=== PATIENT | male | born 1990 | race African-American/Black ===

== ENCOUNTER 2021-07-08 22:29 | Emergency (ER) | payer OTHER ==
[~2021-07-08] VITALS: Ht 182.9 cm; Wt 77.0 kg
[2021-07-08] MEDS ORDERED: MORPHINE SULFATE 4 MG/ML INJ. IV/SQ PRN (23:00)
[2021-07-08] MEDS ORDERED: ACETAMINOPHEN 500 MG TABLET PO ONE (23:00)
[2021-07-08 23:01] LABS: BASO # 0.1 x10^3/uL (0.0-0.2); BASO % 1 % (0-3); EOS # 0.5 x10^3/uL (0.0-0.7); EOS % 6 % (0-3); HEMATOCRIT 39.8 % (39.0-53.0); HEMOGLOBIN 13.4 g/dL (13.0-17.5); LYMPH # 1.2 x10^3/uL (1.0-4.8); LYMPH % 15 % (24-48); MEAN CORPUSCULAR HEMOGLOBIN 29 pg (25-35); MEAN CORPUSCULAR HGB CONC 34 g/dL (31-37); MEAN CORPUSCULAR VOLUME 87 fL (79-100); MONO # 0.6 x10^3/uL (0.0-1.1); MONO % 8 % (0-9); NEUT # 5.6 x10^3/uL (1.8-7.7); NEUT % 70 % (31-73); PLATELET COUNT 314 x10^3/uL (140-400); RED BLOOD COUNT 4.58 x10^6/uL (4.30-5.70); RED CELL DISTRIBUTION WIDTH 13.1 % (11.5-14.5); WHITE BLOOD COUNT 8.1 x10^3/uL (4.0-11.0)
[2021-07-08 23:13] LABS: CALCIUM 8.4 mg/dL (8.5-10.1); GFR 106.9; POTASSIUM 4.4 mmol/L (3.5-5.1)
[2021-07-08 23:19] LABS: ALBUMIN 3.3 g/dL (3.4-5.0); ALBUMIN/GLOBULIN RATIO 0.8 (1.0-1.7); TOTAL BILIRUBIN 0.4 mg/dL (0.2-1.0); TOTAL PROTEIN 7.4 g/dL (6.4-8.2)
--- NOTE | 2021-07-08 23:27 | RAD ---
XR CHEST 1V History: Reason: shortness of breath / Spl. Instructions: / History: Comparison: None. Findings: No consolidation or pleural effusion. Normal heart size. No pneumothorax. Impression: 1. No acute cardiopulmonary process. Electronically signed by: Stanley Trammell DO (07/08/2021 11:25 PM) [facility]
[2021-07-08 23:41] LABS: INFLUENZA A PATIENT NEGATIVE (NEGATIVE); INFLUENZA B PATIENT NEGATIVE (NEGATIVE)
[2021-07-09] MEDS ORDERED: predniSONE 10 MG TABLET PO ONE
[2021-07-09] MEDS ORDERED: IPRATRPIUM/ALBUTEROL 0.5/2.5MG 3 ML NEBU. NEB ONE
[2021-07-09] MEDS ORDERED: BENZ-8 PO (00:11)
[2021-07-09] MEDS ORDERED: PRED50TA PO (00:11)
[2021-07-09] MEDS ORDERED: ALBU2.5V8 IH (00:11)
--- NOTE | 2021-07-09 00:11 | PHYS DOC ---
Past Medical History Additional Past Medical Histor: DENIES ANY HX (KAEL SCOTT [employer] GENER[employer]SE WORK[employer]) Past Surgical History: Tonsillectomy (KAEL SCOTT [employer] WORK[employer]) Smoking Status: Current Every Day Smoker Alcohol Use: Occasionally (KAEL SCOTT [employer]SE WORKER) General Adult EDM: Chief Complaint: CHEST PAIN HPI: HPI: Patient is a 30 year old male who presents to the ED today complaining of cough, chest tightness and shortness of breath, symptoms began today around noon while at work. Patient denies actual chest pain. Patient denies anything specifically making his symptoms worse or better. He states he feels warm. (KAEL SCOTT GENER[employer] HOUSE WORKER) Review of Systems: Review of Systems: Constitutional: Denies fever or chills. [] Eyes: Denies change in visual acuity. [] HENT: Denies nasal congestion or sore throat. [] Respiratory: Reports cough and shortness of breath Cardiovascular: Denies chest pain GI: Denies abdominal pain, nausea, vomiting, bloody stools or diarrhea. [] : Denies dysuria. [] Musculoskeletal: Denies back pain or joint pain. [] Integument: Denies rash. [] Neurologic: Denies headache, focal weakness or sensory changes. [] Psychiatric: Denies depression or anxiety. [] (KAEL SCOTT [employer] WORKER) Heart Score: C/O Chest Pain: N/A Risk Factors: Risk Factors: DM, Current or recent (<one month) smoker, HTN, HLP, family history of CAD, obesity. Risk Scores: Score 0 - 3: 2.5% MACE over next 6 weeks - Discharge Home Score 4 - 6: 20.3% MACE over next 6 weeks - Admit for Clinical Observation Score 7 - 10: 72.7% MACE over next 6 weeks - Early Invasive Strategies (KAEL SCOTT [employer] WORK[employer]) Current Medications: Current Medications Medications (Trade) Dose Ordered Sig/Vinicius Start Time Stop Time Status Last Admin Dose Admin Acetaminophen (Tylenol) 1,000 mg 1X ONCE 07/08/21 23:00 07/08/21 23:01 DC 07/08/21 23:00 1,000 MG Albuterol/ Ipratropium (Duoneb) 3 ml 1X ONCE 07/09/21 00:00 07/09/21 00:01 DC Morphine Sulfate (Morphine Sulfate) 4 mg PRN Q15MIN PRN 07/08/21 23:00 07/09/21 22:59 Prednisone (Prednisone) 50 mg 1X ONCE 07/09/21 00:00 07/09/21 00:01 DC (KAEL SCOTT [employer] WORK[employer]) Allergies: Allergies: Allergies Coded Allergies Type Severity Reaction Last Updated Verified Penicillins Allergy Intermediate 07/08/21 Yes (KAEL SCOTT GENER[employer] HOUSE WORKER) Physical Exam: PE: Constitutional: Well developed, well nourished, no acute distress, non-toxic appearance. [] HENT: Normocephalic, atraumatic, bilateral external ears normal, oropharynx moist, no oral exudates, nose normal. [] Eyes: PERRLA, EOMI, conjunctiva normal, no discharge. [] Neck: Normal range of motion, no tenderness, supple, no stridor. [] Cardiovascular:Heart rate regular rhythm, no murmur [] Lungs & Thorax: Bilateral breath sounds clear to auscultation [] Abdomen: Bowel sounds normal, soft, no tenderness, no masses, no pulsatile masses. [] Skin: Warm, dry, no erythema, no rash. [] Back: No tenderness, no CVA tenderness. [] Extremities: No tenderness, no cyanosis, no clubbing, ROM intact, no edema. [] Neurologic: Alert and oriented X 3, normal motor function, normal sensory function, no focal deficits noted. [] Psychologic: Affect normal, judgement normal, mood normal. [] (KAEL SCOTT GENER[employer] HOUSE WORKER) Current Patient Data: Labs: Laboratory Tests Test 07/08/21 22:45 07/08/21 23:20 White Blood Count 8.1 x10^3/uL (4.0-11.0) Red Blood Count 4.58 x10^6/uL (4.30-5.70) Hemoglobin 13.4 g/dL (13.0-17.5) Hematocrit 39.8 % (39.0-53.0) Mean Corpuscular Volume 87 fL (79-100) Mean Corpuscular Hemoglobin 29 pg (25-35) Mean Corpuscular Hemoglobin Concent 34 g/dL (31-37) Red Cell Distribution Width 13.1 % (11.5-14.5) Platelet Count 314 x10^3/uL (140-400) Neutrophils (%) (Auto) 70 % (31-73) Lymphocytes (%) (Auto) 15 % (24-48) L Monocytes (%) (Auto) 8 % (0-9) Eosinophils (%) (Auto) 6 % (0-3) H Basophils (%) (Auto) 1 % (0-3) Neutrophils # (Auto) 5.6 x10^3/uL (1.8-7.7) Lymphocytes # (Auto) 1.2 x10^3/uL (1.0-4.8) Monocytes # (Auto) 0.6 x10^3/uL (0.0-1.1) Eosinophils # (Auto) 0.5 x10^3/uL (0.0-0.7) Basophils # (Auto) 0.1 x10^3/uL (0.0-0.2) Sodium Level 136 mmol/L (136-145) Potassium Level 4.4 mmol/L (3.5-5.1) Chloride Level 100 mmol/L (98-107) Carbon Dioxide Level 27 mmol/L (21-32) Anion Gap 9 (6-14) Blood Urea Nitrogen 9 mg/dL (8-26) Creatinine 1.0 mg/dL (0.7-1.3) Estimated GFR (Cockcroft-Gault) 106.9 BUN/Creatinine Ratio 9 (6-20) Glucose Level 116 mg/dL (70-99) H Lactic Acid Level 1.2 mmol/L (0.4-2.0) Calcium Level 8.4 mg/dL (8.5-10.1) L Total Bilirubin 0.4 mg/dL (0.2-1.0) Aspartate Amino Transferase (AST) 30 U/L (15-37) Alanine Aminotransferase (ALT) 49 U/L (16-63) Alkaline Phosphatase 73 U/L (46-116) Troponin I High Sensitivity 27 ng/L (4-75) Total Protein 7.4 g/dL (6.4-8.2) Albumin 3.3 g/dL (3.4-5.0) L Albumin/Globulin Ratio 0.8 (1.0-1.7) L Procalcitonin < 0.10 ng/mL (0.00-0.10) Influenza Type A Antigen Negative (NEGATIVE) Influenza Type B Antigen Negative (NEGATIVE) SARS-CoV-2 Antigen (Rapid) Negative (NEGATIVE) Laboratory Tests 07/08/21 22:45 Laboratory Tests 07/08/21 22:45 Vital Signs: Vital Signs Date Time Temp Pulse Resp B/P (MAP) Pulse Ox O2 Delivery O2 Flow Rate FiO2 07/08/21 22:30 101.4 106 20 158/94 (115) 97 Room Air 101.4 (KAEL SCOTT APRN) EKG: EKG: [] (KAEL SCOTT APRN) Radiology/Procedures: Radiology/Procedures: []PROCEDURE: CHEST AP ONLY XR CHEST 1V History: Reason: shortness of breath / Spl. Instructions: / History: Comparison: None. Findings: No consolidation or pleural effusion. Normal heart size. No pneumothorax. Impression: 1. No acute cardiopulmonary process. Electronically signed by: Stanley Trammell DO (07/08/2021 11:25 PM) [facility] DICTATED and SIGNED BY: STANLEY TRAMMELL DO DATE: 07/08/21 [id number] (KAEL SCOTT APRN) Course & Med Decision Making: Course & Med Decision Making Pertinent Labs and Imaging studies reviewed. (See chart for details) This a 30-year-old male patient presented to the ED today complaining of cough, chest tightness, shortness of breath, symptoms began today. Vitals on arrival to the ED temperature one 1.4, heart rate 106, respiration 20 on room air, blood pressure 158/94, O2 sats 97%. Chest x-ray interpreted by radiologist is negative for any acute findings. Negative influenza A&B negative rapid Covid test. CBC with no acute findings, CMP with no acute findings, high-sensitivity troponin is normal, EKG is negative Given Tylenol, breathing treatment, prednisone in the ED. Feeling better. Discharged with the same medicines. Provided return precautions. Follow-up with PCP in the next 7 days (KAEL SCOTT APRN) Course & Med Decision Making Patients Care and treatment plan provided by ER Nurse Practitioner. I was available for consult. Patient's chart reviewed. (ZAIN LR DO) [place] Disclaimer: Dragida Disclaimer: This electronic medical record was generated, in whole or in part, using a voice recognition dictation system. (KAEL SCOTT APRN) Departure Departure Impression: Primary Impression: Acute bronchitis Qualified Codes: J20.9 - Acute bronchitis, unspecified Additional Impression: Fever Qualified Codes: R50.9 - Fever, unspecified Disposition: 01 HOME / SELF CARE / HOMELESS Condition: STABLE Referrals: NO PCP (PCP) follow up with your docto in one week Patient Instructions: Acute Bronchitis, [id number], Fever, Adult Additional Instructions: You were evaluated in the emergency room, your chest x-ray is negative for pneumonia, your rapid Covid test and rapid influenza a and B test are negative. You have a pending PCR COVID test. We will call you with the results. Consider smoking cessation, take Tylenol or Motrin for pain or fever. Use the rest of the prescribed medications as ordered. Scripts Albuterol Sulfate (Proair Hfa) 8.5 Gm Hfa.aer.ad 2 PUFF IH PRN Q4-6HRS PRN for wheezing for 21 Days, #1 INHALER 0 Refills Prov: KAEL SCOTT APRN 07/09/21 Benzonatate (BENZONATATE) 100 Mg Capsule 1 CAP PO TID, #30 CAP Prov: KAEL SCOTT APRN 07/09/21 Prednisone (PREDNISONE) 50 Mg Tablet 1 TAB PO DAILY, #5 TAB Prov: KAEL SCOTT APRN 07/09/21 KEAL SCOTT APRN Jul 09, 2021 00:11 ZAIN LR DO Jul 09, 2021 03:45
[2021-07-09 00:30] VITALS: BP 182/98
--- NOTE | 2021-07-09 05:21 | EKG ---
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
== END 2021-07-09 00:45 | disposition home or self-care (01) ==
LOC: ER 22:29
DX: J20.9 Acute bronchitis, unspecified (principal); R50.9 Fever, unspecified; Z20.822 Contact with and (suspected) exposure to COVID-19; R06.02 Shortness of breath; R07.89 Other chest pain; F17.200 Nicotine dependence, unspecified, uncomplicated; Z88.0 Allergy status to penicillin
CPT/HCPCS: 36415; 71045; 80053; 83605; 84145; 84484; 85025; 87040; 87428; 93005; 94640; 99285; C9803; U0003

== ENCOUNTER 2021-07-15 19:09 | Inpatient (IN) | payer OTHER ==
[~2021-07-15] VITALS: Ht 182.9 cm; Wt 165.6 kg
[~2021-07-15 19:09] MED LIST: ALBU2.5V8 IH; BENZ-8 PO; PRED50TA PO
--- NOTE | 2021-07-15 19:29 | PHYS DOC ---
Past Medical History Past Medical History: No Pertinent History Additional Past Medical Histor: DENIES ANY HX Past Surgical History: Tonsillectomy Smoking Status: Current Every Day Smoker Alcohol Use: Occasionally Drug Use: None General Adult HPI: HPI: Patient is a 30-year-old male that presents today with substernal chest pressure. Patient states the pain started around 530 yesterday evening when he was sitting watching TV, said the pain is located in the center of his chest and it feels like a knife stabbing him. Patient denies nausea or vomiting, shortness of breath, or diaphoresis with this pain. Patient states the pain worsens with deep breaths, and is reproducible with chest wall palpation. Patient was here earlier in the month with chest pain and was diagnosed with acute bronchitis, patient states he has not followed up with a primary care physician for that visit because he does not have one. Review of Systems: Review of Systems: Constitutional: Denies fever or chills. [] Eyes: Denies change in visual acuity. [] HENT: Denies nasal congestion or sore throat. [] Respiratory: Denies cough or shortness of breath. [] Cardiovascular: Chest pressure GI: Denies abdominal pain, nausea, vomiting, bloody stools or diarrhea. [] : Denies dysuria. [] Musculoskeletal: Denies back pain or joint pain. [] Integument: Denies rash. [] Neurologic: Denies headache, focal weakness or sensory changes. [] Endocrine: Denies polyuria or polydipsia. [] Lymphatic: Denies swollen glands. [] Psychiatric: Denies depression or anxiety. [] Heart Score: C/O Chest Pain: Yes HEART Score for Chest Pain: HEART Score for Chest Pain Response (Comments) Value History Slighlty/Non-Suspicious 0 ECG Normal 0 Age < 45 0 Risk Factors 1 or 2 Risk Factors 1 Troponin >3 x Normal Limit 2 Total 3 Risk Factors: Risk Factors: DM, Current or recent (<one month) smoker, HTN, HLP, family history of CAD, obesity. Risk Scores: Score 0 - 3: 2.5% MACE over next 6 weeks - Discharge Home Score 4 - 6: 20.3% MACE over next 6 weeks - Admit for Clinical Observation Score 7 - 10: 72.7% MACE over next 6 weeks - Early Invasive Strategies Allergies: Allergies: Allergies Coded Allergies Type Severity Reaction Last Updated Verified Penicillins Allergy Intermediate 07/08/21 Yes Physical Exam: PE: Constitutional: Well developed, well nourished, no acute distress, non-toxic appearance. [] HENT: Normocephalic, atraumatic, bilateral external ears normal, oropharynx moist, no oral exudates, nose normal. [] Eyes: PERRLA, EOMI, conjunctiva normal, no discharge. [] Neck: Normal range of motion, no tenderness, supple, no stridor, no JVD Cardiovascular:Heart rate regular rhythm, no murmur [] Lungs & Thorax: Bilateral breath sounds clear to auscultation, with upper airway wheezes. Abdomen: Bowel sounds normal, soft, no tenderness, no masses, no pulsatile masses. [] Skin: Warm, dry, no erythema, no rash. [] Back: No tenderness, no CVA tenderness. [] Extremities: No tenderness, no cyanosis, no clubbing, ROM intact, no edema, peripheral pulses are 2+ Neurologic: Alert and oriented X 3, normal motor function, normal sensory function, no focal deficits noted. [] Psychologic: Affect normal, judgement normal, mood normal. [] Current Patient Data: Labs: Laboratory Tests Test 07/15/21 19:30 White Blood Count 7.8 x10^3/uL Red Blood Count 4.76 x10^6/uL Hemoglobin 14.1 g/dL Hematocrit 41.9 % Mean Corpuscular Volume 88 fL Mean Corpuscular Hemoglobin 30 pg Mean Corpuscular Hemoglobin Concent 34 g/dL Red Cell Distribution Width 13.3 % Platelet Count 311 x10^3/uL Neutrophils (%) (Auto) 47 % Lymphocytes (%) (Auto) 41 % Monocytes (%) (Auto) 9 % Eosinophils (%) (Auto) 2 % Basophils (%) (Auto) 1 % Neutrophils # (Auto) 3.7 x10^3/uL Lymphocytes # (Auto) 3.2 x10^3/uL Monocytes # (Auto) 0.7 x10^3/uL Eosinophils # (Auto) 0.1 x10^3/uL Basophils # (Auto) 0.1 x10^3/uL Prothrombin Time 11.6 SEC Prothromb Time International Ratio 0.8 Activated Partial Thromboplast Time 22 SEC D-Dimer (Trista) 0.42 ug/mlFEU Sodium Level 135 mmol/L Potassium Level 3.8 mmol/L Chloride Level 101 mmol/L Carbon Dioxide Level 26 mmol/L Anion Gap 8 Blood Urea Nitrogen 9 mg/dL Creatinine 1.1 mg/dL Estimated GFR (Cockcroft-Gault) 95.8 BUN/Creatinine Ratio 8 Glucose Level 108 mg/dL Calcium Level 8.1 mg/dL Total Bilirubin 0.3 mg/dL Aspartate Amino Transf (AST/SGOT) 59 U/L Alanine Aminotransferase (ALT/SGPT) 104 U/L Alkaline Phosphatase 70 U/L Troponin I High Sensitivity 3060 ng/L NY-Uje-U-Type Natriuretic Peptide 203 pg/mL Total Protein 7.8 g/dL Albumin 3.4 g/dL Albumin/Globulin Ratio 0.8 Current Medications Medications (Trade) Dose Ordered Sig/Vinicisu Route PRN Reason Start Time Stop Time Status Last Admin Dose Admin Ketorolac Tromethamine (Toradol 30mg Vial) 30 mg 1X ONCE IVP 07/15/21 19:30 07/15/21 19:31 DC 07/15/21 19:58 Nitroglycerin (Nitrostat) 0.4 mg PRN Q5MIN PRN SL CHEST PAIN 07/15/21 20:15 07/15/21 20:19 Morphine Sulfate (Morphine Sulfate) 2 mg 1X ONCE IVP 07/15/21 20:15 07/15/21 20:16 DC 07/15/21 20:20 Aspirin (Aspirin Chewable) 324 mg 1X ONCE PO 07/15/21 20:15 07/15/21 20:16 DC 07/15/21 20:18 Iohexol (Omnipaque 350 Mg/ml) 100 ml 1X ONCE IV 07/15/21 20:30 07/15/21 20:32 DC 07/15/21 20:30 Info (CONTRAST GIVEN -- Rx MONITORING) 1 each PRN DAILY PRN MC SEE COMMENTS 07/15/21 20:45 07/17/21 20:44 Vital Signs: Vital Signs Date Time Temp Pulse Resp B/P (MAP) Pulse Ox O2 Delivery O2 Flow Rate FiO2 07/15/21 20:20 29 Room Air 07/15/21 20:19 92 171/102 07/15/21 19:34 98.8 86 16 167/80 (109) 99 Room Air 98.8 EKG: EKG: EKG done at [address] Fernandez at 1925 no STEMI sinus rhythm with ST segment depression in lead III, heart rate is 87 with a VA interval of 152 ms with a QTC of 400 ms. [] Radiology/Procedures: Radiology/Procedures: [REASON: chest pain, DISSECTION PROTOCOL PROCEDURE: CT ANGIOGRAPHY CHEST EXAMINATION: CTA CHEST CLINICAL HISTORY: Chest pain concerning for aortic dissection. Technique: Spiral CT acquisition of the chest from the thoracic inlet to the upper abdomen following IV contrast with coronal and sagittal reformatted images also provided for review. 3D maximum intensity projection images also performed. CT Dose Reduction Employed: One or more of the following individualized dose re duction techniques were utilized for this examination: 1. Automated exposure control 2. Adjustment of the mA and/or kV according to patient size 3. Use of iterative reconstruction technique. COMPARISON: None FINDINGS: Lung Parenchyma, Pleura, and Airways: No focal consolidation. No pleural effusion. Central airways patent. Lower Neck, Lymph Nodes, and Mediastinum: Visualized thyroid gland within normal limits. No mediastinal, hilar, or axillary lymphadenopathy. Heart, Pericardium, and Thoracic Vessels: Cardiac chambers normal in size. No pericardial effusion. No thoracic aortic aneurysm or dissection. No coronary artery atherosclerotic calcifications are noted, although the study is not optimized for coronary assessment. Bones and Soft Tissues: No evidence of acute osseous abnormality. Upper Abdomen: Partially visualized upper abdomen unremarkable. IMPRESSION: No evidence of acute cardiopulmonary abnormality. Electronically signed by: Enrique Flores DO (07/15/2021 9:53 PM) [facility] REASON: chest pain PROCEDURE: PORTABLE CHEST 1V EXAMINATION: XR CHEST 1V CLINICAL HISTORY: Chest pain. EXAM DATE/TIME: 07/15/2021 7:40 PM COMPARISON: 07/08/2021 FINDINGS: Lines, Tubes, and Devices: None. Cardiomediastinal Silhouette: Prominent cardiac silhouette, likely accentuated by AP portable technique. Lungs and Pleura: Question minimal bibasilar subsegmental atelectasis. No evidence of focal airspace consolidation or pleural effusion. Pulmonary vasculature unremarkable. Bones and Soft Tissues: No acute osseous abnormality. IMPRESSION: Question minimal bibasilar subsegmental atelectasis, otherwise no evidence of acute cardiopulmonary abnormality or significant interval change. Electronically signed by: Enrique Flores DO (07/15/2021 8:57 PM) [facility] Course & Med Decision Making: Course & Med Decision Making Pertinent Labs and Imaging studies reviewed. (See chart for details) [address] Tracey with cardiology service informed him of the elevated troponin and the patient's status, he recommended a CT scan of his chest, and starting the patient on a heparin and nitro drip. [address] Wilder he is agreeable to admitting this patient and with the recommendations made by Dr. Ferrara for nitro and heparin drip to admit the patient to the intensive care unit for further management. 2199 CT scan of the chest has been read asno acute findings at this time, we will start a heparin and nitro drip to control blood pressure and chest pain and cardiology will see the patient in the a.m. Dragida Disclaimer: Blake Disclaimer: This electronic medical record was generated, in whole or in part, using a voice recognition dictation system. Departure Departure Impression: Primary Impression: Chest pain Qualified Codes: R07.9 - Chest pain, unspecified Additional Impression: Elevated troponin Disposition: ADMITTED INPATIENT Admitting Physician: KEI Condition: GUARDED Referrals: NO PCP (PCP) VICENTE FRENCH APRN Jul 15, 2021 19:29
[2021-07-15] MEDS ORDERED: KETOROLAC 30 MG/ML VIAL. IVP ONE (19:30)
[2021-07-15 19:40] LABS: BASO # 0.1 x10^3/uL (0.0-0.2); BASO % 1 % (0-3); EOS # 0.1 x10^3/uL (0.0-0.7); EOS % 2 % (0-3); HEMATOCRIT 41.9 % (39.0-53.0); HEMOGLOBIN 14.1 g/dL (13.0-17.5); LYMPH # 3.2 x10^3/uL (1.0-4.8); LYMPH % 41 % (24-48); MEAN CORPUSCULAR HEMOGLOBIN 30 pg (25-35); MEAN CORPUSCULAR HGB CONC 34 g/dL (31-37); MEAN CORPUSCULAR VOLUME 88 fL (79-100); MONO # 0.7 x10^3/uL (0.0-1.1); MONO % 9 % (0-9); NEUT # 3.7 x10^3/uL (1.8-7.7); NEUT % 47 % (31-73); PLATELET COUNT 311 x10^3/uL (140-400); RED BLOOD COUNT 4.76 x10^6/uL (4.30-5.70); RED CELL DISTRIBUTION WIDTH 13.3 % (11.5-14.5); WHITE BLOOD COUNT 7.8 x10^3/uL (4.0-11.0)
[2021-07-15 19:49] LABS: CALCIUM 8.1 mg/dL (8.5-10.1); CREATININE 1.1 mg/dL (0.7-1.3); GFR 95.8; POTASSIUM 3.8 mmol/L (3.5-5.1)
[2021-07-15 19:54] LABS: PROTHROMBIN TIME PATIENT 11.6 SEC (11.7-14.0)
[2021-07-15 19:55] LABS: ALBUMIN 3.4 g/dL (3.4-5.0); ALBUMIN/GLOBULIN RATIO 0.8 (1.0-1.7); TOTAL BILIRUBIN 0.3 mg/dL (0.2-1.0); TOTAL PROTEIN 7.8 g/dL (6.4-8.2)
[2021-07-15 20:10] LABS: D-DIMER 0.42 ug/mlFEU (0.00-0.50)
[2021-07-15] MEDS ORDERED: MORPHINE SULFATE 2 MG/ML INJ. IVP ONE (20:15)
[2021-07-15] MEDS ORDERED: ASPIRIN CHEWABLE 81 MG TABLET. PO ONE (20:15)
[2021-07-15] MEDS ORDERED: NITROGLYCERIN SUBLINGUAL 0.4 MG BOTTLE OF 25. SL PRN (20:15)
[2021-07-15] MEDS ORDERED: IOHEXOL 350 MG/ML 100 ML VIAL. IV ONE (20:30)
[2021-07-15] MEDS ORDERED: CONTRAST GIVEN. MC PRN (20:45)
--- NOTE | 2021-07-15 20:59 | RAD ---
EXAMINATION: XR CHEST 1V CLINICAL HISTORY: Chest pain. EXAM DATE/TIME: 07/15/2021 7:40 PM COMPARISON: 07/08/2021 FINDINGS: Lines, Tubes, and Devices: None. Cardiomediastinal Silhouette: Prominent cardiac silhouette, likely accentuated by AP portable techniq ue. Lungs and Pleura: Question minimal bibasilar subsegmental atelectasis. No evidence of focal airspace consolidation or pleural effusion. Pulmonary vasculature unremarkable. Bones and Soft Tissues: No acute osseous abnormality. IMPRESSION: Question minimal bibasilar subsegmental atelectasis, otherwise no evidence of acute cardiopulmonary a bnormality or significant interval change. Electronically signed by: Enrique Merchant DO (07/15/2021 8:57 PM) [facility]
--- NOTE | 2021-07-15 21:55 | RAD ---
EXAMINATION: CTA CHEST CLINICAL HISTORY: Chest pain concerning for aortic dissection. Technique: Spiral CT acquisition of the chest from the thoracic inlet to the upper abdomen following IV contrast with coronal and sagittal reformatted images also provided for review. 3D maximum intensi ty projection images also performed. CT Dose Reduction Employed: One or more of the following individualized dose reduction techniques wer e utilized for this examination: 1. Automated exposure control 2. Adjustment of the mA and/or kV ac cording to patient size 3. Use of iterative reconstruction technique. COMPARISON: None FINDINGS: Lung Parenchyma, Pleura, and Airways: No focal consolidation. No pleural effusion. Central airways pa tent. Lower Neck, Lymph Nodes, and Mediastinum: Visualized thyroid gland within normal limits. No mediastin al, hilar, or axillary lymphadenopathy. Heart, Pericardium, and Thoracic Vessels: Cardiac chambers normal in size. No pericardial effusion. N o thoracic aortic aneurysm or dissection. No coronary artery atherosclerotic calcifications are noted , although the study is not optimized for coronary assessment. Bones and Soft Tissues: No evidence of acute osseous abnormality. Upper Abdomen: Partially visualized upper abdomen unremarkable. IMPRESSION: No evidence of acute cardiopulmonary abnormality. Electronically signed by: Enrique Merchant DO (07/15/2021 9:53 PM) [facility]
[2021-07-15] MEDS ORDERED: HEPARIN for IV BOLUS 10,000 UNIT/10 ML VIAL. IV PRN (22:15)
[2021-07-15] MEDS ORDERED: MORPHINE SULFATE 2 MG/ML INJ. IVP PRN (22:15)
[2021-07-15] MEDS ORDERED: ONDANSETRON PF 4 MG/2 ML VIAL. IVP PRN (22:15)
[2021-07-15] MEDS ORDERED: ANTI-COAG MONITOR BY PHARMACY. MC PRN (22:30)
[2021-07-15] MEDS ORDERED: HEPARIN for IV BOLUS 10,000 UNIT/10 ML VIAL. IV ONE (22:30)
[2021-07-15] MEDS ORDERED: NITROGLYCERIN PREMIX 250 ML IV ONE (23:00)
[2021-07-15] MEDS: HEPARIN 25,000UTS/250ML PREMIX 250 ML IV PRN (23:12)
[2021-07-16] VITALS (17 sets, daily range): BP systolic 144–196; BP diastolic 83–111
--- NOTE | 2021-07-16 00:30 | EKG ---
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
--- NOTE | 2021-07-16 00:32 | EKG ---
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
[2021-07-16] MEDS ORDERED: CALCIUM CARBONATE 500 MG TAB.CHEW PO PRN (09:30)
[2021-07-16] MEDS ORDERED: MORPHINE SULFATE 2 MG/ML INJ. IV PRN ×2 (09:30)
[2021-07-16] MEDS ORDERED: ELECTROLYTE (NON-ICU) PROTOCOL. MC PRN (09:30)
[2021-07-16] MEDS ORDERED: ONDANSETRON PF 4 MG/2 ML VIAL. IVP PRN (09:30)
[2021-07-16] MEDS ORDERED: ACETAMINOPHEN 325 MG TABLET. PO PRN (09:30)
[2021-07-16] MEDS ORDERED: ZOLPIDEM 5 MG TABLET. PO PRN (09:30)
[2021-07-16] MEDS ORDERED: hydrALAZINE 20 MG/ML VIAL. IVP PRN (09:45)
--- NOTE | 2021-07-16 09:48 | EKG ---
[facility] [address] [place] [address] Test Date: 2021-07-16 Test Time: 09:42:18 Pat Name: JESSICA LAZO Department: Room: 104 1 Gender: M Director Medicare Sales: YEIMI : 1990 Requested By: ADITYA DELGADO Order Number: [id number] Reading MD: Measurements Intervals [place] Rate: 89 P: 32 MI: 150 QRS: 58 QRSD: 80 T: 19 QT: 330 QTc: 407 Interpretive Statements SINUS RHYTHM OTHERWISE NORMAL ECG RI6.02 Compared to ECG 07/15/2021 20:15:37 Left-axis deviation no longer present T-wave abnormality no longer present
[2021-07-16 09:59] LABS: CHOLESTEROL/HDL RATIO 5.1
--- NOTE | 2021-07-16 10:17 | PDOC2 ---
ADITYA DELGADO BEHAVIORAL HEALTH DIRECTOR 07/16/21 1017: CARDIAC CONSULT DATE OF CONSULT Date of Consult DATE: 07/16/21 TIME: 09:57 REASON FOR CONSULT Reason for Consult: Chest pain, elevated troponin REFERRING PHYSICIAN Referring Physician: Too rodriguez SOURCE Source: Chart review, Patient HISTORY OF PRESENT ILLNESS HISTORY OF PRESENT ILLNESS This is a pleasant 30 yo male admitted for complains of chest pain. Reports that yesterday while at rest started having mid chest tightness. He got nauseated and blaming it on gasx. Also with some SOA and left arm heaviness. Denies any palpitations. His chest pain got better after NTG x1 and morphine and presently on NTG drip. Denies any past hx of VTE, CAD, or arrhythmias. NO recent injury or falls. Denies any routine meds. He was treated less than 2 weeks ago for bronchitis. No hx of HTN, HLP and has not been tested for LATONIA. He is unvaccinated for covid-19 and denies any fever or chills or any viral symptoms. PAST MEDICAL HISTORY Past Medical History No pertinent history PAST SURGICAL HISTORY Past Surgical History: Tonsillectomy FAMILY HISTORY Family History noncontributory to CV SOCIAL HISTORY Smoke: <1 pack per day ALCOHOL: none Drugs: None Lives: with Family CURRENT MEDICATIONS CURRENT MEDICATIONS Current Medications Medications (Trade) Dose Ordered Sig/Vinicius Route PRN Reason Start Time Stop Time Status Last Admin Dose Admin Ketorolac Tromethamine (Toradol 30mg Vial) 30 mg 1X ONCE IVP 07/15/21 19:30 07/15/21 19:31 DC 07/15/21 19:58 Nitroglycerin (Nitrostat) 0.4 mg PRN Q5MIN PRN SL CHEST PAIN 07/15/21 20:15 07/15/21 20:19 Morphine Sulfate (Morphine Sulfate) 2 mg 1X ONCE IVP 07/15/21 20:15 07/15/21 20:16 DC 07/15/21 20:20 Aspirin (Aspirin Chewable) 324 mg 1X ONCE PO 07/15/21 20:15 07/15/21 20:16 DC 07/15/21 20:18 Iohexol (Omnipaque 350 Mg/ml) 100 ml 1X ONCE IV 07/15/21 20:30 07/15/21 20:32 DC 07/15/21 20:30 Heparin Sodium (Porcine) (Heparin Sodium) 4,000 unit 1X ONCE IV 07/15/21 22:30 07/15/21 22:31 DC 07/15/21 23:08 Heparin Sodium/ Dextrose 250 ml @ 10 mls/hr CONT PRN IV PER PROTOCOL 07/15/21 22:15 07/15/21 23:12 Nitroglycerin/ Dextrose 250 ml @ 1.5 mls/hr 1X ONCE IV 07/15/21 23:00 07/22/21 21:39 07/15/21 23:14 Info (Anti-Coagulation Monitoring By Pharmacy) 1 each PRN DAILY PRN MC PER PROTOCOL 07/15/21 22:30 07/16/21 00:43 ALLERGIES ALLERGIES: Coded Allergies: Penicillins (Verified Allergy, Intermediate, 07/15/21) ROS Review of System 14 point ROS evaluated with pertinent positives noted per HPI PHYSICAL EXAM General: Alert, Oriented X3, Cooperative, No acute distress HEENT: Atraumatic, Mucous membr. moist/pink Lungs: Clear to auscultation, Normal air movement Heart: Regular rate, Normal S1, Normal S2, No murmurs Abdomen: Soft, No tenderness, Other (obese) Extremities: No cyanosis, No edema Skin: No breakdown, No significant lesion Neuro: Normal speech, Sensation intact Psych/Mental Status: Mental status NL, Mood NL MUSCULOSKELETAL: Full range of motion without pain VITALS/I&O VITALS/I&O: Vital Signs Date Time Temp Pulse Resp B/P (MAP) Pulse Ox O2 Delivery O2 Flow Rate FiO2 07/16/21 06:00 74 20 196/111 (139) 84 07/16/21 04:00 Nasal Cannula 2.0 07/16/21 04:00 99.1 99.1 I & O 07/15/21 07/15/21 07/16/21 15:00 23:00 07:00 Intake Total 489 ml Output Total 0 ml Balance 489 ml LABS Lab: Laboratory Tests Test 07/15/21 19:30 07/15/21 22:01 07/16/21 01:10 07/16/21 04:45 White Blood Count 7.8 x10^3/uL (4.0-11.0) Red Blood Count 4.76 x10^6/uL (4.30-5.70) Hemoglobin 14.1 g/dL (13.0-17.5) Hematocrit 41.9 % (39.0-53.0) Mean Corpuscular Volume 88 fL (79-100) Mean Corpuscular Hemoglobin 30 pg (25-35) Mean Corpuscular Hemoglobin Concent 34 g/dL (31-37) Red Cell Distribution Width 13.3 % (11.5-14.5) Platelet Count 311 x10^3/uL (140-400) Neutrophils (%) (Auto) 47 % (31-73) Lymphocytes (%) (Auto) 41 % (24-48) Monocytes (%) (Auto) 9 % (0-9) Eosinophils (%) (Auto) 2 % (0-3) Basophils (%) (Auto) 1 % (0-3) Neutrophils # (Auto) 3.7 x10^3/uL (1.8-7.7) Lymphocytes # (Auto) 3.2 x10^3/uL (1.0-4.8) Monocytes # (Auto) 0.7 x10^3/uL (0.0-1.1) Eosinophils # (Auto) 0.1 x10^3/uL (0.0-0.7) Basophils # (Auto) 0.1 x10^3/uL (0.0-0.2) Prothrombin Time 11.6 SEC (11.7-14.0) L Prothrombin Time INR 0.8 (0.8-1.1) Activated Partial Thromboplast Time 22 SEC (24-38) L D-Dimer (Trista) 0.42 ug/mlFEU (0.00-0.50) Sodium Level 135 mmol/L (136-145) L Potassium Level 3.8 mmol/L (3.5-5.1) Chloride Level 101 mmol/L (98-107) Carbon Dioxide Level 26 mmol/L (21-32) Anion Gap 8 (6-14) Blood Urea Nitrogen 9 mg/dL (8-26) Creatinine 1.1 mg/dL (0.7-1.3) Estimated GFR (Cockcroft-Gault) 95.8 BUN/Creatinine Ratio 8 (6-20) Glucose Level 108 mg/dL (70-99) H Calcium Level 8.1 mg/dL (8.5-10.1) L Total Bilirubin 0.3 mg/dL (0.2-1.0) Aspartate Amino Transferase (AST) 59 U/L (15-37) H Alanine Aminotransferase (ALT) 104 U/L (16-63) H Alkaline Phosphatase 70 U/L (46-116) Troponin I High Sensitivity 3060 ng/L (4-75) H 3131 ng/L (4-75) H 4980 ng/L (4-75) H PG-Gbl-E-Type Natriuretic Peptide 203 pg/mL (0-124) H Total Protein 7.8 g/dL (6.4-8.2) Albumin 3.4 g/dL (3.4-5.0) Albumin/Globulin Ratio 0.8 (1.0-1.7) L Heparin Anti-Xa Act, Unfractionated 0.21 IU/mL (0.30-0.70) L Laboratory Tests 07/15/21 19:30 Laboratory Tests 07/15/21 19:30 ASSESSMENT/PLAN ASSESSMENT/PLAN 1. NSTEMI: possibly demand mediated with uncontrolled HTN. EKG with no acute changes SR. 2. Chest pain: potentially from high BP 3. HTN urgency 4. Morbid obesity 5. Tobaccoism 6. Mild transaminitis: possible hepatosteatosis Recommendations 1. DC NTG. Start on amlodipine and lisinopril. Hold any BB for now with episodes of bradycardia. Hydralazine IV PRN. 2. ASA 3. x1 trop, FLP, TSH and TTE 4. Will need outpt LATONIA workup 5. Wt loss and smoking cessation 6. Will need ischemic workup pending tests HERI RICHMOND MD 07/16/21 1620: CARDIAC CONSULT ASSESSMENT/PLAN ASSESSMENT/PLAN Patient seen and examined The patient is more comfortable. I agree with our nurse practitioners assessment and plan. NSTEMI: possibly demand mediated with uncontrolled HTN. EKG with no acute changes SR. Echo pending. Chest pain: potentially from high BP. Continuing medications for improved blood pressure control. HTN urgency. Medications as above. Morbid obesity Tobaccoism. Discussed with the patient. Mild transaminitis: possible hepatosteatosis Probable obstructive sleep apnea. Outpatient work-up. ADITYA DELGADO APRN Jul 16, 2021 10:17 HERI RICHMOND MD Jul 16, 2021 16:20
--- NOTE | 2021-07-16 10:23 | PDOC1 ---
History and Physical Date of Service: DOS: DATE: 07/16/21 TIME: 10:23 Chief Complaint: Chief Complain: chest pain History of Present Illness: HPI: Patient is a 30-year-old male that presents today with substernal chest pressure. Patient states the pain started around 530 yesterday evening when he was sitting watching TV, said the pain is located in the center of his chest and it feels like a knife stabbing him. Patient denies nausea or vomiting, shortness of breath, or diaphoresis with this pain. Patient states the pain worsens with deep breaths, and is reproducible with chest wall palpation. Patient was here earlier in the month with chest pain and was diagnosed with acute bronchitis, patient states he has not followed up with a primary care physician for that visit because he does not have one. Past Medical/Surgical History: PMH/PSH: Past Medical History: No Pertinent History X Past Surgical History: Tonsillectomy Smoking Status: Current Every Day Smoker Alcohol Use: Occasionally Drug Use: None Allergies: Allergies: Coded Allergies: Penicillins (Verified Allergy, Intermediate, 07/15/21) Family History: Family History: CAD, [place] Current Medications: Current Medications Current Medications Ketorolac Tromethamine (Toradol 30mg Vial) 30 mg 1X ONCE IVP Last administered on 07/15/21at 19:58; Start 07/15/21 at 19:30; Stop 07/15/21 at 19:31; Status DC Nitroglycerin (Nitrostat) 0.4 mg PRN Q5MIN PRN SL CHEST PAIN Last administered on 07/15/21at 20:19; Start 07/15/21 at 20:15 Morphine Sulfate (Morphine Sulfate) 2 mg 1X ONCE IVP Last administered on 07/15/21at 20:20; Start 07/15/21 at 20:15; Stop 07/15/21 at 20:16; Status DC Aspirin (Aspirin Chewable) 324 mg 1X ONCE PO Last administered on 07/15/21at 20:18; Start 07/15/21 at 20:15; Stop 07/15/21 at 20:16; Status DC Iohexol (Omnipaque 350 Mg/ml) 100 ml 1X ONCE IV Last administered on 07/15/21at 20:30; Start 07/15/21 at 20:30; Stop 07/15/21 at 20:32; Status DC Info (CONTRAST GIVEN -- Rx MONITORING) 1 each PRN DAILY PRN MC SEE COMMENTS; Start 07/15/21 at 20:45; Stop 07/17/21 at 20:44 Ondansetron HCl (Zofran) 4 mg PRN Q8HRS PRN IVP NAUSEA/VOMITING 1ST CHOICE; Start 07/15/21 at 22:15; Stop 07/16/21 at 09:32; Status DC Morphine Sulfate (Morphine Sulfate) 2 mg PRN Q2HR PRN IVP SEVERE PAIN 7-10; Start 07/15/21 at 22:15; Stop 07/16/21 at 09:32; Status DC Heparin Sodium (Porcine) (Heparin Sodium) 4,000 unit 1X ONCE IV Last administered on 07/15/21at 23:08; Start 07/15/21 at 22:30; Stop 07/15/21 at 22:31; Status DC Heparin Sodium/ Dextrose 250 ml @ 10 mls/hr CONT PRN IV PER PROTOCOL Last administered on 07/15/21at 23:12; Start 07/15/21 at 22:15 Heparin Sodium (Porcine) (Heparin Sodium) 4,300 unit PRN Q6HRS PRN IV FOR UFH LEVEL LESS THAN 0.2; Start 07/15/21 at 22:15 Nitroglycerin/ Dextrose 250 ml @ 1.5 mls/hr 1X ONCE IV Last administered on 07/15/21at 23:14; Start 07/15/21 at 23:00; Stop 07/22/21 at 21:39 Info (Anti-Coagulation Monitoring By Pharmacy) 1 each PRN DAILY PRN MC PER PROTOCOL Last administered on 07/16/21at 00:43; Start 07/15/21 at 22:30 Ondansetron HCl (Zofran) 4 mg PRN Q6HRS PRN IVP NAUSEA/VOMITING; Start 07/16/21 at 09:30 Calcium Carbonate/ Glycine (Tums) 500 mg PRN Q3HRS PRN PO UPSET STOMACH; Start 07/16/21 at 09:30 Zolpidem Tartrate (Ambien) 5 mg PRN QHS PRN PO INSOMNIA, MAY REPEAT IN 1HR; Start 07/16/21 at 09:30 Info (Non-Icu Electrolyte Protocol) 1 ea PRN DAILY PRN MC SEE COMMENTS; Start 07/16/21 at 09:30 Morphine Sulfate (Morphine Sulfate) 1 mg PRN Q1HR PRN IV PAIN; Start 07/16/21 at 09:30 Morphine Sulfate (Morphine Sulfate) 2 mg PRN Q1HR PRN IV PAIN; Start 07/16/21 at 09:30 Acetaminophen (Tylenol) 650 mg PRN Q6HRS PRN PO Headaches, Temp > 101.5F; Start 07/16/21 at 09:30 Senna/Docusate Sodium (Senna Plus) 1 tab BID PO ; Start 07/16/21 at 10:00 Hydralazine HCl (Apresoline Inj) 10 mg PRN Q4HRS PRN IVP ELEVATED BP, SEE COMMENTS; Start 07/16/21 at 09:45 Amlodipine Besylate (Norvasc) 5 mg DAILY PO ; Start 07/16/21 at 10:00; Stop 07/16/21 at 10:09; Status DC Amlodipine Besylate (Norvasc) 10 mg DAILY PO ; Start 07/17/21 at 09:00 Lisinopril (Prinivil) 20 mg DAILY PO ; Start 07/17/21 at 09:00 Aspirin (Ecotrin) 81 mg DAILYWBKFT PO ; Start 07/16/21 at 11:00 Active Scripts Active Proair Hfa (Albuterol Sulfate) 8.5 Gm Hfa.aer.ad 2 Puff IH PRN Q4-6HRS PRN 21 Days Benzonatate 100 Mg Capsule 1 Cap PO TID Prednisone 50 Mg Tablet 1 Tab PO DAILY ROS: Review of Systems Review of System Unless noted in HPI 14 point review of systems was negative Physical Exam: Vital Signs: Vital Signs Date Time Temp Pulse Resp B/P (MAP) Pulse Ox O2 Delivery O2 Flow Rate FiO2 07/16/21 06:00 74 20 196/111 (139) 84 07/16/21 04:00 Nasal Cannula 2.0 07/16/21 04:00 99.1 99.1 Physcial Exam: GEN: No apparent distress. Alert and oriented HEENT: Normal cephalic, atraumatic, external auditory canals are patent EYES: Extraocular muscles are intact, pupil are equally round and reactive to light and accommodation MUSCULOSKELETAL: Well developed , well nourished, good range of motion ENDOCRINE: No thyromegaly was palpated LYMPHATICS: No cervical chain or axillary nodes were noted HEMATOPOIETIC: No bruising NECK: Supple, no JVD, no thyromegaly was noted LUNGS: Clear to auscultation in all lung arias without rhonchi or wheezing HEART: RRR, S!, S2 present. Peripheral pulses intact, no obvious murmurs noted ABDOMEN: Soft, nontender. Positive bowel sounds, no organomegaly, normal bowel sounds EXTREMITIES: Without clubbing, cyanosis, or edema. Pedal pulses intact. Negative Homans sign NEUROLOGIC: Normal speech and tone. A&O x 3, moves all extremities, no obvious focal deficits PSYCHIATRIC: Normal affect, normal mood. Stable SKIN: No ulcerations or rashes, good skin turgor, no jaundice VASCULAR: Good capillary refill, neurovascular bundle appears to be intact Labs: Labs: Laboratory Tests Test 07/15/21 19:30 07/15/21 22:01 07/16/21 01:10 07/16/21 04:45 White Blood Count 7.8 x10^3/uL (4.0-11.0) Red Blood Count 4.76 x10^6/uL (4.30-5.70) Hemoglobin 14.1 g/dL (13.0-17.5) Hematocrit 41.9 % (39.0-53.0) Mean Corpuscular Volume 88 fL (79-100) Mean Corpuscular Hemoglobin 30 pg (25-35) Mean Corpuscular Hemoglobin Concent 34 g/dL (31-37) Red Cell Distribution Width 13.3 % (11.5-14.5) Platelet Count 311 x10^3/uL (140-400) Neutrophils (%) (Auto) 47 % (31-73) Lymphocytes (%) (Auto) 41 % (24-48) Monocytes (%) (Auto) 9 % (0-9) Eosinophils (%) (Auto) 2 % (0-3) Basophils (%) (Auto) 1 % (0-3) Neutrophils # (Auto) 3.7 x10^3/uL (1.8-7.7) Lymphocytes # (Auto) 3.2 x10^3/uL (1.0-4.8) Monocytes # (Auto) 0.7 x10^3/uL (0.0-1.1) Eosinophils # (Auto) 0.1 x10^3/uL (0.0-0.7) Basophils # (Auto) 0.1 x10^3/uL (0.0-0.2) Prothrombin Time 11.6 SEC (11.7-14.0) Prothromb Time International Ratio 0.8 (0.8-1.1) Activated Partial Thromboplast Time 22 SEC (24-38) D-Dimer (Trista) 0.42 ug/mlFEU (0.00-0.50) Sodium Level 135 mmol/L (136-145) Potassium Level 3.8 mmol/L (3.5-5.1) Chloride Level 101 mmol/L (98-107) Carbon Dioxide Level 26 mmol/L (21-32) Anion Gap 8 (6-14) Blood Urea Nitrogen 9 mg/dL (8-26) Creatinine 1.1 mg/dL (0.7-1.3) Estimated GFR (Cockcroft-Gault) 95.8 BUN/Creatinine Ratio 8 (6-20) Glucose Level 108 mg/dL (70-99) Calcium Level 8.1 mg/dL (8.5-10.1) Total Bilirubin 0.3 mg/dL (0.2-1.0) Aspartate Amino Transf (AST/SGOT) 59 U/L (15-37) Alanine Aminotransferase (ALT/SGPT) 104 U/L (16-63) Alkaline Phosphatase 70 U/L (46-116) Troponin I High Sensitivity 3060 ng/L (4-75) 3131 ng/L (4-75) 4980 ng/L (4-75) SI-Yhy-G-Type Natriuretic Peptide 203 pg/mL (0-124) Total Protein 7.8 g/dL (6.4-8.2) Albumin 3.4 g/dL (3.4-5.0) Albumin/Globulin Ratio 0.8 (1.0-1.7) Triglycerides Level 120 mg/dL (0-150) Cholesterol Level 172 mg/dL (0-200) LDL Cholesterol, Calculated 114 mg/dL (0-100) VLDL Cholesterol, Calculated 24 mg/dL (0-40) Non-HDL Cholesterol Calculated 138 mg/dL (0-129) HDL Cholesterol 34 mg/dL (40-60) Cholesterol/HDL Ratio 5.1 Thyroid Stimulating Hormone (TSH) 2.223 uIU/mL (0.358-3.74) Heparin Anti-Xa Act, Unfractionated 0.21 IU/mL (0.30-0.70) Laboratory Tests Test 07/15/21 19:30 07/15/21 22:01 07/16/21 01:10 07/16/21 04:45 White Blood Count 7.8 x10^3/uL (4.0-11.0) Red Blood Count 4.76 x10^6/uL (4.30-5.70) Hemoglobin 14.1 g/dL (13.0-17.5) Hematocrit 41.9 % (39.0-53.0) Mean Corpuscular Volume 88 fL (79-100) Mean Corpuscular Hemoglobin 30 pg (25-35) Mean Corpuscular Hemoglobin Concent 34 g/dL (31-37) Red Cell Distribution Width 13.3 % (11.5-14.5) Platelet Count 311 x10^3/uL (140-400) Neutrophils (%) (Auto) 47 % (31-73) Lymphocytes (%) (Auto) 41 % (24-48) Monocytes (%) (Auto) 9 % (0-9) Eosinophils (%) (Auto) 2 % (0-3) Basophils (%) (Auto) 1 % (0-3) Neutrophils # (Auto) 3.7 x10^3/uL (1.8-7.7) Lymphocytes # (Auto) 3.2 x10^3/uL (1.0-4.8) Monocytes # (Auto) 0.7 x10^3/uL (0.0-1.1) Eosinophils # (Auto) 0.1 x10^3/uL (0.0-0.7) Basophils # (Auto) 0.1 x10^3/uL (0.0-0.2) Prothrombin Time 11.6 SEC (11.7-14.0) Prothromb Time International Ratio 0.8 (0.8-1.1) Activated Partial Thromboplast Time 22 SEC (24-38) D-Dimer (Trista) 0.42 ug/mlFEU (0.00-0.50) Sodium Level 135 mmol/L (136-145) Potassium Level 3.8 mmol/L (3.5-5.1) Chloride Level 101 mmol/L (98-107) Carbon Dioxide Level 26 mmol/L (21-32) Anion Gap 8 (6-14) Blood Urea Nitrogen 9 mg/dL (8-26) Creatinine 1.1 mg/dL (0.7-1.3) Estimated GFR (Cockcroft-Gault) 95.8 BUN/Creatinine Ratio 8 (6-20) Glucose Level 108 mg/dL (70-99) Calcium Level 8.1 mg/dL (8.5-10.1) Total Bilirubin 0.3 mg/dL (0.2-1.0) Aspartate Amino Transf (AST/SGOT) 59 U/L (15-37) Alanine Aminotransferase (ALT/SGPT) 104 U/L (16-63) Alkaline Phosphatase 70 U/L (46-116) Troponin I High Sensitivity 3060 ng/L (4-75) 3131 ng/L (4-75) 4980 ng/L (4-75) BQ-Kja-W-Type Natriuretic Peptide 203 pg/mL (0-124) Total Protein 7.8 g/dL (6.4-8.2) Albumin 3.4 g/dL (3.4-5.0) Albumin/Globulin Ratio 0.8 (1.0-1.7) Triglycerides Level 120 mg/dL (0-150) Cholesterol Level 172 mg/dL (0-200) LDL Cholesterol, Calculated 114 mg/dL (0-100) VLDL Cholesterol, Calculated 24 mg/dL (0-40) Non-HDL Cholesterol Calculated 138 mg/dL (0-129) HDL Cholesterol 34 mg/dL (40-60) Cholesterol/HDL Ratio 5.1 Thyroid Stimulating Hormone (TSH) 2.223 uIU/mL (0.358-3.74) Heparin Anti-Xa Act, Unfractionated 0.21 IU/mL (0.30-0.70) Assessment/Plan Assessment/Plan Chest pain secondary to uncontrolled hypertension, NSTEMI, obesity -Presented with 1 day history of chest pain. Elevated troponins in ER Heparin drip nitro drip started -Cardiology consult will ideally be able to wean off drips Wednesday -Notably hypertensive on my evaluation. Will start 5 Norvasc and titrate as needed -Lifestyle modifications - Home meds as indicated -DVT prophylaxis -Cardiac diet Justifications for Admission Other Justification SHEREEN LITTLE MD Jul 16, 2021 10:23
[2021-07-16] MEDS: HEPARIN 25,000UTS/250ML PREMIX 250 ML IV PRN (11:00)
[2021-07-16] MEDS: SENNOSIDES/DOCUSATE 8.6/50MG TABLET. PO SCH ×2 (12:13→21:00)
[2021-07-16] MEDS ORDERED: PERFLUTREN PROTEIN-A MICROSPHR 0.22 MG/ML 3 ML VIAL. IV ONE ×4 (12:15→15:45)
[2021-07-16] MEDS: ASPIRIN ENTERIC COATED 81 MG TABLET.DR. PO SCH (12:16)
[2021-07-16] MEDS: LISINOPRIL 20 MG TABLET PO SCH (12:16)
--- NOTE | 2021-07-16 15:16 | NUR ---
Htn discussed w patient. Reports NO MEDS AT HOME. [employer] on unit. orders noted/completed. Able to stop heparin a1500. Po meds w information on Rx provided and need to continue with these . Consequences of HBP discussed. Reinforcxement and further teaching required. Transfer to 6th floor per W/C. Prtinted material we patient
--- NOTE | 2021-07-16 15:38 | NUR ---
SS following for discharge planning. SS reviewed pt chart and discussed with pt RN. Pt is from home and is currently on room air. Cardiology following. Pt transferred to room 676. SS will continue to follow for discharge planning.
--- NOTE | 2021-07-16 17:53 | CARD ---
MR#: [id number] Date of Study: 07/16/2021 Ordering Physician: ADITYA DELGADO, Referring Physician: ADITYA DELGADO Tech: Rsomery Centeno [facility] APPROVED REPORT EXAM: Two-dimensional and M-mode echocardiogram with Doppler and color Doppler. Other Information Quality : Technically LimitedHR: 91bpm Rhythm : NSR INDICATION Chest Pain RISK FACTORS Hypertension Obesity 2D DIMENSIONS Left Atrium(2D)4.2 (1.6-4.0cm)IVSd1.1 (0.7-1.1cm) Aortic Root(2D)2.9 (2.0-3.7cm)LVDd4.8 (3.9-5.9cm) LVOT Diameter2.1 (1.8-2.4cm)PWd1.2 (0.7-1.1cm) LVDs3.5 (2.5-4.0cm)FS (%) 26.2 % SV54.6 mlLVEF(%)51.3 (>50%) Aortic Valve AoV Peak Nacho.164.5cm/sAoV VTI28.4cm AO Peak GR.10.8mmHgLVOT Peak Nacho.122.6cm/s AO Mean GR.5mmHgAVA (VMAX)2.56cm2 Mitral Valve MV E Kpxfgehn83.3cm/sMV DECEL [id number] MV A Kagfesux36.0cm/sE/A Ratio2.3 LEFT VENTRICLE The left ventricle is normal size. There is mild concentric left ventricular hypertrophy. The left ve ntricular systolic function is normal. Estimated ejection fraction 65%. There is normal LV segmental wall motion. The left ventricular diastolic function and filling is normal for age. RIGHT VENTRICLE The right ventricle is normal size. There is normal right ventricular wall thickness. The right ventr icular systolic function is normal. ATRIA The left atrium size is normal. The right atrium size is normal. The interatrial septum is intact wit h no evidence for an atrial septal defect or patent foramen ovale as noted on 2-D or Doppler imaging. AORTIC VALVE The aortic valve is normal in structure and function. Doppler and Color Flow revealed no significant aortic regurgitation. There is no significant aortic valvular stenosis. MITRAL VALVE The mitral valve is normal in structure and function. There is no evidence of mitral valve prolapse. There is no mitral valve stenosis. Doppler and Color Flow revealed no mitral valve regurgitation note d. TRICUSPID VALVE The tricuspid valve is normal in structure and function. Doppler and Color Flow revealed no tricuspid valve regurgitation noted. There is no tricuspid valve stenosis. PULMONIC VALVE The pulmonary valve is normal in structure and function. Doppler and Color Flow revealed no pulmonic valvular regurgitation. GREAT VESSELS The aortic root is normal in size. The ascending aorta is normal in size. The IVC is normal in size a nd collapses >50% with inspiration. PERICARDIAL EFFUSION There is no evidence of significant pericardial effusion. Critical Notification Critical Value: No <Conclusion> The left ventricular systolic function is normal. Estimated ejection fraction 65%. There is normal LV segmental wall motion. There is no evidence of significant pericardial effusion. Signed by : Jonah Hidalgo, Electronically Approved : 07/16/2021 17:52:53
[2021-07-17 02:47] VITALS: BP 119/92
[2021-07-17 07:00] VITALS: BP 150/89
--- NOTE | 2021-07-17 09:26 | PDOC ---
ADITYA DELGADO DENTOFACIAL ORTHOPEDICS DENTIST 07/17/21 0926: CARDIO Progress Notes Date and Time Date of Service 07/17/2021 Time of Evaluation 1050 Subjective Subjective: No Chest Pain, No shortness of breath, No Palpitations Vitals Vitals Vital Signs Date Time Temp Pulse Resp B/P (MAP) Pulse Ox O2 Delivery O2 Flow Rate FiO2 07/17/21 07:00 97.7 89 18 150/89 (109) 100 Room Air 97.7 07/16/21 19:05 2.0 Weight Weight [ ] Input and Output Intake and Output Intake and Output 07/17/21 07:00 Intake Total 1710 ml Output Total 0 ml Balance 1710 ml Intake Oral 1210 ml IV Total 500 ml Output Urine Total 0 ml # Voids 6 # Bowel Movements 1 Laboratory Labs Laboratory Tests Test 07/16/21 10:23 Heparin Anti-Xa Act, Unfractionated 0.13 IU/mL (0.30-0.70) Troponin I High Sensitivity 5146 ng/L (4-75) Physical Exam HEENT: Neck Supple W Full Motion Chest: Symmetric LUNGS: Clear to Auscultation Heart: S1S2, RRR (SR) Abdomen: Soft N/T Extremities: No Calf Tenderness Neurology: alert, oriented, follow commands Assessment Assessment 1. NSTEMI: possibly demand mediated with uncontrolled HTN. EKG with no acute changes SR. 2. Chest pain: potentially from high BP. EF and WM nml per TTE 3. HTN urgency: better controlled 4. Morbid obesity 5. Tobaccoism 6. Mild transaminitis: possible hepatosteatosis 7. DLP 8. Bradycardia: intermittent junctional rhythm with episodes of mobitz type 2 second degree possibly vagal induced occurring mainly while asleep. Otherwise SR. Recommendations 1. Continue amlodipine and lisinopril. Avoid AV brunilda blocking agents. Hydralazine IV PRN. 2. ASA, start on statin 3. Consider nocturnal desat study as an inpt. Will need outpt LATONIA workup 4. Wt loss and smoking cessation 5. Will arrange for outpt MPI Justicifation of Admission Dx: Justifications for Admission: Justification of Admission Dx: Yes HERI RICHMOND MD 07/17/21 4483: CARDIO Progress Notes Assessment Assessment Patient seen and examined He looks and feels better today. He denies chest pain. I agree with our nurse practitioners assessment and plan. NSTEMI: possibly demand mediated with uncontrolled HTN. EKG with no acute changes SR. continuing medical treatment. Chest pain: potentially from high BP. EF and WM nml per TTE HTN urgency: better controlled Morbid obesity Tobaccoism Mild transaminitis: possible hepatosteatosis DLP Bradycardia: intermittent junctional rhythm with episodes of mobitz type 2 second degree possibly vagal induced occurring mainly while asleep. Otherwise SR. medications as above. No AV brunilda blocking agents. Nocturnal desat study. Outpatient MPI and follow-up. ADITYA DELGADO APRN Jul 17, 2021 09:26 HERI RICHMOND MD Jul 17, 2021 17:46
[2021-07-17] MEDS: ASPIRIN ENTERIC COATED 81 MG TABLET.DR. PO SCH (09:27)
[2021-07-17] MEDS: LISINOPRIL 20 MG TABLET PO SCH (09:28)
[2021-07-17] MEDS: SENNOSIDES/DOCUSATE 8.6/50MG TABLET. PO SCH ×2 (09:28→21:02)
[2021-07-17 10:51] VITALS: BP 135/86
--- NOTE | 2021-07-17 10:59 | PDOC ---
[facility] [facility] PROGRESS NOTE Date of Service DOS: DATE: 07/17/21 TIME: 10:57 Chief Complaint Chief Complaint Chest pain Morbid obesity Elevated troponin Probable obstructive sleep apnea Noncompliance Tonsillectomy Current Every Day Smoker History of Present Illness History of Present Illness 07/17/2021 Patient seen and examined Upon my arrival to the room he is snoring loudly and then stops breathing several times I am convinced he has severe obstructive sleep apnea He is quite overweight Discussed the case with case management Discussed with RN Discussed with cardiology nurse practitioner Discussed with RT Chart reviewed Vitals/I&O Vitals/I&O: Vital Signs Date Time Temp Pulse Resp B/P (MAP) Pulse Ox O2 Delivery O2 Flow Rate FiO2 07/17/21 10:51 98.0 86 18 135/86 (102) 96 Room Air 98.0 07/16/21 19:05 2.0 I & O 07/16/21 07/16/21 07/17/21 15:00 23:00 07:00 Intake Total 900 ml 710 ml 100 ml Output Total 0 ml Balance 900 ml 710 ml 100 ml Physical Exam General: mild distress, Other (Having periods of apnea with his intermittent snoring) Heart: Regular rate, Normal S1, Normal S2, No murmurs Abdomen: Soft, No tenderness, Other (obese) Extremities: No cyanosis, No edema Skin: No breakdown, No significant lesion Assessment and Plan Assessmemt and Plan Problems Medical Problems: (1) Chest pain Status: Acute (2) Elevated troponin Status: Acute Chest pain Morbid obesity Elevated troponin Probable obstructive sleep apnea Noncompliance Tonsillectomy Current Every Day Smoker Plan Cardiac monitoring Trend labs Serial enzymes Serial EKGs Discussed with cardiology nurse practitioner Discussed with RT we are ordering a nocturnal desaturation test Will consult pulmonary Home meds DVT prophylaxis Full code Long-term prognosis guarded Comment Review of Relevant I have reviewed the following items willie (where applicable) has been applied. Medications: Current Medications Medications (Trade) Dose Ordered Sig/Vinicius Route PRN Reason Start Time Stop Time Status Last Admin Dose Admin Amlodipine Besylate (Norvasc) 10 mg DAILY PO 07/16/21 12:00 07/17/21 09:28 Lisinopril (Prinivil) 20 mg DAILY PO 07/16/21 12:00 07/17/21 09:28 Aspirin (Ecotrin) 81 mg DAILYWBKFT PO 07/16/21 11:00 07/17/21 09:27 Justifications for Admission Other Justification MIESHA TRIPP III DO Jul 17, 2021 10:59
--- NOTE | 2021-07-17 11:06 | NUR ---
SS following up with discharge planning. SS reviewed pt chart and discussed with pt RN. Pt is currently on room air. Cardiology following. Pulmonology consulted. Nocturnal desat study ordered. Discharge plan is currently to home when medically ready for discharge. SS will continue to follow for discharge planning.
--- NOTE | 2021-07-17 11:14 | EKG ---
[facility] [address] [place] [address] Test Date: 2021-07-17 Test Time: 11:11:08 Pat Name: JESSICA LAZO Department: Room: 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
[2021-07-17 11:19] LABS: GFR 106.9; POTASSIUM 4.1 mmol/L (3.5-5.1)
--- NOTE | 2021-07-17 12:35 | CONS ---
DATE OF CONSULTATION: 07/17/2021 PULMONARY CONSULTATION ATTENDING PHYSICIAN: Kush Rocha DO REASON FOR CONSULTATION: Suspected sleep apnea. HISTORY OF PRESENT ILLNESS: The patient is a 30-year-old who has a BMI of 49. He was hospitalized with chest pain. He had a non-STEMI. He also had poor control of his blood pressure. I have been asked to see him for further evaluation of suspected sleep apnea. The patient has never been tested for sleep apnea. He averages about 5-6 hours of sleep at night. His girlfriend was at the bedside and states that he snores and has witnessed apneas. When he wakes up in the morning, he feels tired and sleepy throughout the day. He has put on at least 35 pounds in the last few years. He never had a formal sleep study. CT angiogram was performed. There was no evidence of pulmonary embolism. There were no other acute abnormalities. Cardiology is following the patient. His blood pressure systolic is 150 and diastolic of 89. On admission, it was up to 200 with a diastolic of 115. PAST MEDICAL HISTORY: Significant for morbid obesity. Otherwise, no other significant past medical history. SURGERIES: Tonsillectomy. FAMILY HISTORY: Noncontributory to lungs. SOCIAL HISTORY: Smoked less than 1 pack per day for last 7-8 years. No drugs. ALLERGIES: PENICILLIN. MEDICATIONS: Reviewed as listed in the MRAD. REVIEW OF SYSTEMS: As discussed in my history of present illness, otherwise noncontributory. PHYSICAL EXAMINATION: VITAL SIGNS: Reviewed. Pulse ox 95% on room air. HEENT: Oropharynx shows large tongue, low-set soft palate. NECK: Supple. LUNGS: Clear. CARDIOVASCULAR: With a regular rate. ABDOMEN: Soft, obese. EXTREMITIES: With no pitting edema. LABORATORY DATA: Reviewed. BUN and creatinine normal. Troponin 5146. White cell count 7.8. IMPRESSION: 1. Non-ST segment elevation myocardial infarction, probably triggered by suboptimal control of blood pressure/hypertensive urgency. Cardiology following. 2. Underlying morbid obesity and clinical symptoms highly suggestive of sleep apnea. Could be severe. Needs an outpatient polysomnogram. RECOMMENDATIONS: 1. Discussed with the patient and his girlfriend. We will arrange an outpatient polysomnogram.Increase CV morbidity and mortality risks with untreated sleep apnea discussed with patient. 2. In the meantime, nocturnal oximetry study has been ordered and if he qualifies, he will be arranged on oxygen while waiting for the sleep study. 3. Weight loss is strongly emphasized to the patient. 4. Follow Cardiology recommendations. 5. We will follow the patient in the office. ANASTASIYA DR: Keith TID: [id number] [email or web address]
[2021-07-17 15:37] VITALS: BP 112/52
[2021-07-17 19:29] VITALS: BP 159/77
[2021-07-17] MEDS ORDERED: ATORVASTATIN CALCIUM 10 MG TABLET. PO SCH (21:00)
[2021-07-17 22:41] VITALS: BP 148/95
[2021-07-18 03:37] VITALS: BP 113/59
--- NOTE | 2021-07-18 04:26 | NUR ---
UNABLE TO PERFORM NOCTURNAL DESATURATION STUDY DUE TO MISSING [employer] SOFTWARE. WILL MONITOR PATIENT WITH SUPPLEMENTAL OXYGEN AND INFORM PHYSICIAN IF OXYGEN IS NEEDED
[2021-07-18 07:00] VITALS: BP 122/87
[2021-07-18] MEDS: ASPIRIN ENTERIC COATED 81 MG TABLET.DR. PO SCH (08:41)
[2021-07-18] MEDS: SENNOSIDES/DOCUSATE 8.6/50MG TABLET. PO SCH (08:41)
[2021-07-18] MEDS: LISINOPRIL 20 MG TABLET PO SCH (08:41)
--- NOTE | 2021-07-18 09:32 | PDOC ---
[facility] [facility] PROGRESS NOTE Date of Service DOS: DATE: 07/18/21 TIME: 09:29 Chief Complaint Chief Complaint Chest pain Morbid obesity Elevated troponin Probable obstructive sleep apnea Noncompliance Tonsillectomy Current Every Day Smoker History of Present Illness History of Present Illness 07/18/2021 Patient seen and examined with his nurse Chart reviewed Discussed with case management Patient is awake today admits he has been having problems with his sleep for some time States has been trying to lose weight 07/17/2021 Patient seen and examined Upon my arrival to the room he is snoring loudly and then stops breathing several times I am convinced he has severe obstructive sleep apnea He is quite overweight Discussed the case with case management Discussed with RN Discussed with cardiology nurse practitioner Discussed with RT Chart reviewed Vitals/I&O Vitals/I&O: Vital Signs Date Time Temp Pulse Resp B/P (MAP) Pulse Ox O2 Delivery O2 Flow Rate FiO2 07/18/21 08:41 76 122/87 07/18/21 07:00 98.1 20 100 Room Air 98.1 07/17/21 20:00 2.0 I & O 07/17/21 07/17/21 07/18/21 15:00 23:00 07:00 Intake Total 200 ml 200 ml 350 ml Balance 200 ml 200 ml 350 ml Physical Exam General: Alert, Oriented X3, No acute distress Heart: Regular rate, Normal S1, Normal S2, No murmurs Abdomen: Soft, No tenderness, Other (obese) Extremities: No cyanosis, No edema Skin: No breakdown, No significant lesion Labs Labs: Laboratory Tests Test 07/17/21 11:01 Sodium Level 137 mmol/L (136-145) Potassium Level 4.1 mmol/L (3.5-5.1) Chloride Level 103 mmol/L (98-107) Carbon Dioxide Level 26 mmol/L (21-32) Anion Gap 8 (6-14) Blood Urea Nitrogen 8 mg/dL (8-26) Creatinine 1.0 mg/dL (0.7-1.3) Estimated GFR (Cockcroft-Gault) 106.9 Glucose Level 97 mg/dL (70-99) Calcium Level 9.0 mg/dL (8.5-10.1) Assessment and Plan Assessmemt and Plan Problems Medical Problems: (1) Chest pain Status: Acute (2) Elevated troponin Status: Acute Chest pain Morbid obesity Elevated troponin Probable obstructive sleep apnea Noncompliance Tonsillectomy Current Every Day Smoker Plan Awaiting nocturnal sleep study results Appreciate pulmonary input they are arranging for the patient to have polysomnography as outpatient For now continue the following; Cardiac monitoring Trend labs Serial enzymes Serial EKGs Cigarette cessation education Home meds DVT prophylaxis Full code Long-term prognosis guarded if he does not lose weight and quit smoking (I explained this to the patient) We will likely need home oxygen per nasal cannula and eventually probably a CPAP machine Appreciate pulmonary input Comment Review of Relevant I have reviewed the following items willie (where applicable) has been applied. Medications: Current Medications Medications (Trade) Dose Ordered Sig/Vinicius Route PRN Reason Start Time Stop Time Status Last Admin Dose Admin Atorvastatin Calcium (Lipitor) 10 mg QHS PO 07/17/21 21:00 07/17/21 21:02 Justifications for Admission Other Justification MIESHA TRIPP III DO Jul 18, 2021 09:32
[2021-07-18] MEDS ORDERED: AMLO-187 PO (09:34)
[2021-07-18] MEDS ORDERED: ATOR10TA60 PO (09:34)
[2021-07-18] MEDS ORDERED: ASPI-886 PO (09:34)
[2021-07-18] MEDS ORDERED: NITR0.4T24 SL (09:34)
[2021-07-18] MEDS ORDERED: LISI-130 PO (09:34)
--- NOTE | 2021-07-18 09:56 | DS ---
DATE OF DISCHARGE: 07/18/2021 ADMITTING DIAGNOSES: Chest pain and elevated troponin. DISCHARGE DIAGNOSES: 1. Resolving chest pain, resolving elevated troponin (we think this was all secondary to demand ischemia from hypertensive urgency and morbid obesity with secondary obstructive sleep apnea). 2. History of tonsillectomy. 3. History of continued tobacco abuse. 4. Morbid obesity. CONSULTS: Cardiology and Pulmonary Medicine. PROCEDURES: None. HOSPITAL COURSE: The patient is a pleasant middle-aged male who presented with chest pain. His is morbidly obese. When I first met him, I observed severe obstructive sleep apnea. He was snoring and then he quit breathing for 30 seconds and then this repeated several times. I am sure he has severe obstructive sleep apnea. I did consult Dr. Jones for a second opinion. He agrees. We did a nocturnal desaturation test. We are awaiting the results of that. Dr. Jones is arranging outpatient polysomnography. Today, I saw the patient, he is clinically doing much better. He is alert, oriented, wants to go home. If okay with Cardiology, we plan to discharge with close outpatient followup. DISPOSITION: Home. ACTIVITY: As tolerated. DIET: Low sodium. DISCHARGE MEDICATIONS: Please see the MRAD. Amlodipine 10 a day, aspirin 81 a day, atorvastatin 10 a day, lisinopril 20 a day, p.r.n. nitro, albuterol 2 puffs q.4 hours p.r.n., benzonatate 100 mg t.i.d. p.r.n. and we will continue his home prednisone. TOTAL TIME: [address]: Satya TID: [id number]
--- NOTE | 2021-07-18 10:44 | PDOC ---
PULMONARY PROGRESS NOTES DATE: 07/18/21 TIME: 10:43 Subjective Denies any shortness of breath. Nocturnal oximetry could not be performed last night due to technical difficulties. Vitals Vital Signs Date Time Temp Pulse Resp B/P (MAP) Pulse Ox O2 Delivery O2 Flow Rate FiO2 07/18/21 08:41 76 122/87 07/18/21 07:00 98.1 20 100 Room Air 98.1 07/17/21 20:00 2.0 General: Alert, No acute distress Lungs: Clear Cardiovascular: S1 Abdomen: Other (Obese) Neuro Exam: Alert Extremities: No Edema Labs Laboratory Tests Test 07/17/21 11:01 Sodium Level 137 mmol/L (136-145) Potassium Level 4.1 mmol/L (3.5-5.1) Chloride Level 103 mmol/L (98-107) Carbon Dioxide Level 26 mmol/L (21-32) Anion Gap 8 (6-14) Blood Urea Nitrogen 8 mg/dL (8-26) Creatinine 1.0 mg/dL (0.7-1.3) Estimated GFR (Cockcroft-Gault) 106.9 Glucose Level 97 mg/dL (70-99) Calcium Level 9.0 mg/dL (8.5-10.1) Laboratory Tests Test 07/17/21 11:01 Sodium Level 137 mmol/L (136-145) Potassium Level 4.1 mmol/L (3.5-5.1) Chloride Level 103 mmol/L (98-107) Carbon Dioxide Level 26 mmol/L (21-32) Anion Gap 8 (6-14) Blood Urea Nitrogen 8 mg/dL (8-26) Creatinine 1.0 mg/dL (0.7-1.3) Estimated GFR (Cockcroft-Gault) 106.9 Glucose Level 97 mg/dL (70-99) Calcium Level 9.0 mg/dL (8.5-10.1) Medications Active Scripts Medications Dose Route/Sig Max Daily Dose Days Date Category Aspirin Ec (Aspirin) 81 Mg Tablet.dr 81 Mg PO DAILYWBKFT 30 07/18/21 Rx Lisinopril 40 Mg Tablet 20 Mg PO DAILY 30 07/18/21 Rx Amlodipine Besylate 10 Mg Tablet 10 Mg PO DAILY 30 07/18/21 Rx Nitrostat (Nitroglycerin) 0.4 Mg Tab.subl 0.4 Mg SL PRN Q5MIN PRN 28 07/18/21 Rx Atorvastatin Calcium 10 Mg Tablet 10 Mg PO QHS 30 07/18/21 Rx Proair Hfa (Albuterol Sulfate) 8.5 Gm Hfa.aer.ad 2 Puff IH PRN Q4-6HRS PRN 21 07/09/21 Rx Benzonatate 100 Mg Capsule 1 Cap PO TID 07/09/21 Rx Prednisone 50 Mg Tablet 1 Tab PO DAILY 07/09/21 Rx Impression . 1. Non-ST segment elevation myocardial infarction, probably triggered by suboptimal control of blood pressure/hypertensive urgency. Cardiology following. 2. Underlying morbid obesity and clinical symptoms highly suggestive of sleep apnea. Could be severe. Needs an outpatient polysomnogram. Plan . 1. Discussed with the patient and his girlfriend. We will arrange an outpatient polysomnogram.Increase CV morbidity and mortality risks with untreated sleep apnea discussed with patient. 2. Nocturnal oximetry study could not be performed due to technical difficul ties. 3. Weight loss is strongly emphasized to the patient. 4. Follow Cardiology recommendations. 5. We will follow the patient in the office post sleep study. ERNESTO MARCIAL MD Jul 18, 2021 10:44
[2021-07-18 11:00] VITALS: BP 163/87
--- NOTE | 2021-07-18 11:17 | NUR ---
SS following up with discharge planning. SS reviewed pt chart and discussed with pt RN. Pt is currently on room air. Discharge order on the chart for home with self care.
--- NOTE | 2021-07-18 12:43 | PDOC ---
CARDIO Progress Notes Date and Time Date of Service 07/18/2021 Time of Evaluation 1230 Subjective Subjective: No Chest Pain, No shortness of breath, No Palpitations Vitals Vitals Vital Signs Date Time Temp Pulse Resp B/P (MAP) Pulse Ox O2 Delivery O2 Flow Rate FiO2 07/18/21 11:00 98.2 78 20 163/87 (112) 95 Room Air 98.2 07/17/21 20:00 2.0 Weight Weight [ ] Input and Output Intake and Output Intake and Output 07/18/21 07:00 Intake Total 750 ml Balance 750 ml Intake Oral 750 ml # Voids 2 Physical Exam HEENT: Neck Supple W Full Motion Chest: Symmetric LUNGS: Clear to Auscultation Heart: S1S2, RRR (SR) Abdomen: Soft N/T Extremities: No Calf Tenderness Neurology: alert, oriented, follow commands Assessment Assessment 1. NSTEMI: possibly demand mediated with uncontrolled HTN. EKG with no acute c hanges SR. 2. Chest pain: potentially from high BP. EF and WM nml per TTE 3. HTN urgency: better controlled 4. Morbid obesity 5. Tobaccoism 6. Mild transaminitis: possible hepatosteatosis 7. DLP 8. Bradycardia: intermittent junctional rhythm with episodes of mobitz type 2 second degree possibly vagal induced occurring mainly while asleep. Otherwise SR. Recommendations 1. Continue amlodipine and lisinopril. Avoid AV brunilda blocking agents. Hydralazine IV PRN. 2. ASA, start on statin 3. Consider nocturnal desat study. Will need outpt LATONIA workup 4. Wt loss and smoking cessation 5. Will arrange for outpt MPI 6. MCOT Justicifation of Admission Dx: Justifications for Admission: Justification of Admission Dx: Yes ADITYA DELGADO [employer] SYSTEMS PROGRAMMER Jul 18, 2021 12:43
--- NOTE | 2021-07-18 14:15 | NUR ---
Pt discharged around 1410. IV taken out, no complications, all discharge education provided, all belongings taken with patient. Pt walked out to main entrance where a family member picked him up. Pt instructed to follow up with cardiology and pt accepted.
== END 2021-07-18 14:15 | disposition home or self-care (01) | DRG 281 ==
LOC: ER 19:09 → 1 WEST ICU 20:28 → 6 SOUTH 07-16 15:35
PROVIDERS: ADMIT Student in an Organized Health Care Education/Training Program; ATTEND Student in an Organized Health Care Education/Training Program
DX: I16.0 Hypertensive urgency (principal); I21.A1 Myocardial infarction type 2; Z68.42 Body mass index [BMI] 45.0-49.9, adult; E66.01 Morbid (severe) obesity due to excess calories; F17.210 Nicotine dependence, cigarettes, uncomplicated; G47.33 Obstructive sleep apnea (adult) (pediatric); I10 Essential (primary) hypertension; I44.1 Atrioventricular block, second degree; Z82.49 Family history of ischemic heart disease and other diseases of the circulatory system; Z79.01 Long term (current) use of anticoagulants; Z91.19 Patient's noncompliance with other medical treatment and regimen; Z88.0 Allergy status to penicillin
CPT/HCPCS: 96365; 96375; 99285; C8929; 36415; 71045; 71275; 80048; 80053; 80061; 83880; 84443; 84484; 85025; 85379; 85520; 85610; 85730; 93005; J0360; J1644; J1885; J2270; J3490; Q9956; Q9967; G0378